=== PATIENT | female | born 2000 | race Caucasian/White ===

== ENCOUNTER 2023-03-31 20:57 | Emergency (ER) | payer BC ==
[~2023-03-31] VITALS: Ht 160 cm; Wt 49.9 kg
[2023-03-31 21:14] VITALS: BP 108/63; TEMP 98.2
[2023-03-31 21:19] VITALS: O2SAT 100
== END 2023-03-31 21:59 | disposition home or self-care (01) ==
LOC: ER 21:20
DX: G47.00 Insomnia, unspecified (principal); F31.9 Bipolar disorder, unspecified